=== PATIENT | male | born 1960 | race African-American/Black ===

== ENCOUNTER 2019-08-03 23:13 | Emergency (ER) | payer OTHER ==
[~2019-08-03] VITALS: Ht 182.9 cm; Wt 104.5 kg
[~2019-08-03 23:13] MED LIST: ATORVASTATIN; CALCIUM; CHLORESTEROL MED; CIPRO 500MG TA500 MG PO; DOXYCYCLINE 10100 MG PO; FISH OIL; FLEXERIL 1010 MG/TAB PO; FLEXERIL10 MG PO; IRON; LORTAB 5/500 501 TAB PO; LORTAB 7.5/5001 TAB; LORTAB 7.5/5001 TAB PO; MOTRIN 800800 MG/TAB PO; NORCO 325 MG-51 TAB PO; PRIL40; VICODIN 5/5001 UDTAB PO
[2019-08-03 23:18] VITALS: BP 136/87; TEMP 97.5
[2019-08-04] MEDS ORDERED: FORTAMET500 M1 PO (00:19)
[2019-08-04] MEDS ORDERED: NORCO 325 MG-51 TAB PO (01:16)
[2019-08-04 01:37] VITALS: PULSE 86
== END 2019-08-04 01:33 | disposition home or self-care (01) ==
LOC: COL.ER 23:13
DX: M54.2 Cervicalgia (principal); E11.9 Type 2 diabetes mellitus without complications; Z79.84 Long term (current) use of oral hypoglycemic drugs; Z90.49 Acquired absence of other specified parts of digestive tract; Z98.890 Other specified postprocedural states; Z88.8 Allergy status to other drugs, medicaments and biological substances
CPT/HCPCS: J1885

== ENCOUNTER 2020-12-31 05:33 | Day surgery (SDC) | payer OTHER ==
[2020-12-31] VITALS (8 sets, daily range): BP systolic 115–122; BP diastolic 65–83; PULSE 58–74; TEMP 97.6
[~2020-12-31] VITALS: Ht 182.9 cm; Wt 96.8 kg
[~2020-12-31 05:33] MED LIST changes: +FORTAMET500 M1 PO
[2020-12-31 06:05] LABS: BASO % 0.6 % (0.0-2.0); EOS # 0.1 (0.0-0.7); EOS % 1.8 % (0-4.0); GRAN # 3.1 (1.4-6.5); GRAN % 42.9 % (42.2-75.2); HEMOGLOBIN 13.1 g/dl (13.5-18.0); LYMPH # 3.2 (1.2-3.4); LYMPH % 43.7 % (20.0-51.0); MEAN CELL VOLUME 91 fl (80.0-100.0); MEAN CORPUSCULAR HEMOGLOBIN 30 pg (27.0-31.0); MEAN CORPUSCULAR HGB CONC 33 g/dl (33.0-37.0); MEAN PLATELET VOLUME 10.7 fl (7.4-10.4); MONO # 0.8 (0.1-0.6); MONO % 10.9 % (1.7-9.3); PLATELET COUNT 248 K/mm3 (130-400); REDCELL DISTRIBUTION WIDTH-CV 12.4 % (11.5-14.5)
[2020-12-31 06:16] LABS: PARTIAL THROMBOPLASTIN TIME 32.8 SECONDS (26.0-37.0)
[2020-12-31 06:18] LABS: CREATININE, serum 1.07 (0.66-1.25); POTASSIUM 3.8 mmol/L (3.4-5.0)
[2020-12-31] MEDS ORDERED: AMARYL1 MG PO (06:23)
[2020-12-31] MEDS ORDERED: VIVLODEX5 MG PO (06:34)
--- NOTE | 2020-12-31 08:30 | NUR ---
Patient up from OR. Drowsy but arouses to voice. Spouse at bedside. Post op VSS and Post op fluids infusing at this time. Patient denies needs at this time.
[2020-12-31] MEDS ORDERED: NORCO 325 MG-51 TAB PO (08:41)
--- NOTE | 2020-12-31 10:45 | NUR ---
Patient up to restroom, voiding without difficulties. SBA with steady gait.
--- NOTE | 2020-12-31 11:27 | NUR ---
SW met with patient and spouse to conduct intake evaluation. Patient lives at home in [place] with Yoko and their children. Patient was willing to fill out DPOA paperwork. Patient designates Yoko as DPOA. Paperwork was filled out and signed. Original was placed on the chart, and copies were given to patient. Patient is independent at home and requires no DME. Patient's PCP is Denzel Wei, and he uses [facility] in [place] for medications. Patient plans to discharge home with who will provide transportation. Patient denies questions or concerns at this time. Patient is discharging today 11/30.
--- NOTE | 2020-12-31 12:19 | NUR ---
Patient states he is having pain 4/10 to buttock, medication given per orders.
--- NOTE | 2020-12-31 13:22 | NUR ---
Contacted Dr. Ramsey for work release, patient ready to discharge. Has been up ambulating with SBA, Tolerating diet. Patient states he would like to go home. Pain medications given earlier for pain; states relief. No further needs at this time.
--- NOTE | 2020-12-31 13:40 | NUR ---
Discharge education provided to patient and spouse. Educated on when to call provider and new medication. Educated on medication safety. All questions answered. Denies further needs at this time. Patient ambulated out with surgical staff.
== END 2020-12-31 13:40 | disposition home or self-care (01) ==
LOC: COL.ER 05:33 → SURG 07:01 → SDCO 07:01
PROVIDERS: Emergency Medicine
DX: K64.5 Perianal venous thrombosis (principal); E11.9 Type 2 diabetes mellitus without complications; Z79.84 Long term (current) use of oral hypoglycemic drugs; G89.29 Other chronic pain; M54.2 Cervicalgia; Z86.16 Personal history of COVID-19; Z88.8 Allergy status to other drugs, medicaments and biological substances
CPT/HCPCS: OP; J0690; J2250; J2405; J2704; J3010; J7120